=== PATIENT | male | born 1965 | race Two or more races ===

== ENCOUNTER 2020-10-01 13:18 | Outpatient (CLI) | payer OTHER | END 2020-10-01 14:20 | disposition home or self-care (01) | LOC: OFIC 805 13:18 | PROVIDERS: ATTEND Otolaryngology | DX: H93.13 Tinnitus, bilateral (principal) ==

== ENCOUNTER 2021-01-01 09:05 | Outpatient (CLI) | payer OTHER | END 2021-01-01 09:42 | disposition home or self-care (01) | LOC: OFIC 805 09:05 | PROVIDERS: ATTEND Otolaryngology | DX: H93.13 Tinnitus, bilateral (principal) ==

== ENCOUNTER 2022-07-01 06:18 | Day surgery (SDC) | payer OTHER | END 2022-07-01 11:10 | disposition home or self-care (01) | LOC: AMB-ENDOS 06:18 | PROVIDERS: ATTEND Colon & Rectal Surgery | DX: D12.2 Benign neoplasm of ascending colon (principal); Z20.822 Contact with and (suspected) exposure to COVID-19; K64.4 Residual hemorrhoidal skin tags; I10 Essential (primary) hypertension; E11.9 Type 2 diabetes mellitus without complications; K59.09 Other constipation ==